=== PATIENT | female | born 1970 | race Caucasian/White ===

== ENCOUNTER 2017-02-12 23:05 | Emergency (ER) | payer OTHER ==
[2017-02-12 23:15] VITALS: RESP 17
--- NOTE | 2017-02-12 23:37 | ED ---
Back Pain HPI - General Chief Complaint: Back Pain/Injury Stated Complaint: Med refill Time Seen by Provider: 02/12/17 23:13 Source: patient, RN notes reviewed, old records reviewed Limitations: no limitations - History of Present Illness Initial Comments: Pt is a 46 year old female arriving via EMS for chief complaint of needing medication refill for MS Genet due to chronic pain. 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 Patient reports that she has a history of fibromyalgia that causes her severe pain. She states that she has tried multiple custom motorcycle painter but noone is accomidating to her needing "non generic" pain medication and that will fill Prior Auths, as well as taking her insurance. Patient states she saw her PCP and was written for tyelnol with codeine yesterday. Paitent reports she did not take them abecause she does not want to change her regimen, as well as concern for the tyelenol on her stomach lining. - Related Data Allergies Allergy/AdvReac Type Severity Reaction Status Date / Time morphine Allergy Unknown Verified 02/12/17 23:09 pantoprazole [From Protonix] Allergy Unknown Verified 02/12/17 23:09 Review of Systems ROS Statement: Those systems with pertinent positive or pertinent negative responses have been documented in the HPI. ROS Other: All systems not noted in ROS Statement are negative. Past Medical History Past Medical History: Diabetes Mellitus Additional Past Medical History / Comment(s): weakness History of Any Multi-Drug Resistant Organisms: None Reported Past Surgical History: Ablation, Appendectomy, Tonsillectomy Additional Past Surgical History / Comment(s): tubes, spleenectomy Past Psychological History: No Psychological Hx Reported Smoking Status: Never smoker Past Alcohol Use History: None Reported Past Drug Use History: None Reported General Exam - General Exam Comments Initial Comments: Well appearing 46 year old female, Alert oriented, no acute distress. REsting comfortable. Limitations: no limitations General appearance: alert, in no apparent distress Head exam: Present: atraumatic, normocephalic, normal inspection Eye exam: Present: normal appearance, PERRL, EOMI. Absent: scleral icterus, conjunctival injection, periorbital swelling ENT exam: Present: normal exam, mucous membranes moist Neck exam: Present: normal inspection. Absent: tenderness, meningismus, lymphadenopathy Respiratory exam: Present: normal lung sounds bilaterally. Absent: respiratory distress, wheezes, rales, rhonchi, stridor Cardiovascular Exam: Present: regular rate, normal rhythm, normal heart sounds. Absent: systolic murmur, diastolic murmur, rubs, gallop, clicks GI/Abdominal exam: Present: soft, normal bowel sounds. Absent: distended, tenderness, guarding, rebound, rigid Extremities exam: Present: normal inspection, full ROM, normal capillary refill. Absent: tenderness, pedal edema, joint swelling, calf tenderness Back exam: Present: normal inspection Neurological exam: Present: alert, oriented X3, CN II-XII intact Psychiatric exam: Present: normal affect, normal mood Skin exam: Present: warm, dry, intact, normal color. Absent: rash Course Vital Signs 02/12/17 02/12/17 23:10 23:51 Temperature 98.1 F 98.3 F Pulse Rate 115 H 97 Respiratory 17 17 Rate Blood Pressure 120/74 118/78 O2 Sat by Pulse 100 100 Oximetry Medical Decision Making - Medical Decision Making Pt is a 46 year old female arriving via EMS for chief complaint of needing medication refill for MS Contin due to chronic pain. 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 Patient reports that she has a history of fibromyalgia that causes her severe pain. She states that she has tried multiple custom motorcycle painter but noone is accomidating to her needing "non generic" pain medication and that will fill Prior Auths, as well as taking her insurance. Patient states she saw her PCP and was written for tyelnol with codeine yesterday. Paitent reports she did not take them abecause she does not want to change her regimen, as well as concern for the tyelenol on her stomach lining. [facility] report she got 120 Tylenol 4's yesterday. Patient was advised to take them , and that they will not cause damage to stomach lining as much as motrin. Patient given pain management referral. Patient received no pain medication in ED. Patient advised to follow up with PCP. Disposition Clinical Impression: Chronic pain Disposition: HOME SELF-CARE Condition: Good Instructions: Chronic Pain (ED) Additional Instructions: Follow-up with a primary care physician in regards to this. Patient can also try to contact neurologist and custom motorcycle painter within the area. Return to the emergency department if any alarming symptoms occur. Referrals: Karina Joyner MD [Primary Care Provider] - 1-2 days Esthela Mason MD [STAFF PHYSICIAN] - 1-2 days Alfred Molina MD [STAFF PHYSICIAN] - 1-2 days Time of Disposition: 23:35
[2017-02-12 23:53] VITALS: BP 118/78; PULSE 97; TEMP 98.3
== END 2017-02-12 23:51 | disposition home or self-care (01) ==
LOC: EC 23:05
DX: G89.29 Other chronic pain (principal); Z88.5 Allergy status to narcotic agent; Z88.8 Allergy status to other drugs, medicaments and biological substances
CPT/HCPCS: 99282